=== PATIENT | male | born 1965 | race Caucasian/White ===

== ENCOUNTER 2021-08-25 15:37 | Emergency (ER) | payer OTHER ==
[2021-08-25 17:30] LABS: BASOPHIL 0.8 % (0-2); EOSINOPHIL 2.5 % (0-5); HCT 50.6 % (42.0-52.0); HGB 17.6 g/dl (13.2-18.0); LYMPHOCYTE 31.5 % (15-48); MCH 33.5 pg (25.0-31.0); MCHC 34.8 g/dL (32.0-36.0); MCV 96.2 fL (78.0-100.0); MONOCYTE 8.4 % (0-12); MPV 9.9 fL (6.0-9.5); NEUTROPHIL 56.4 % (41-80); NRBC 0; PLT 230 K/uL (150-400); RBC 5.26 M/uL (4.70-6.00); RDW 11.6 % (11.5-14.0); WBC 8.5 K/uL (4.0-10.5)
[2021-08-25 17:40] LABS: INR 1.07 (0.9-1.2); PROTHROMBIN TIME 13.3 SECONDS (11.8-13.4); PTT 34.1 SECONDS (24.4-34.7)
[2021-08-25 18:11] LABS: BILIRUBIN - TOTAL 0.3 mg/dL (0.2-1.0); BUN/CREAT RATIO (CALC) 13.2 RATIO; CREATININE 0.76 mg/dL (0.67-1.17); GLOBULIN (CALCULATION) 3.6 g/dL; POTASSIUM 4.3 mmol/L (3.5-5.1); TOTAL PROTEIN 7.6 g/dL (6.4-8.2)
== END 2021-08-25 23:00 | disposition home or self-care (01) ==
LOC: FER 15:37
PROVIDERS: Emergency Medicine
DX: M79.604 Pain in right leg (principal); I10 Essential (primary) hypertension; Z79.899 Other long term (current) drug therapy
CPT/HCPCS: 36415; 72131; 75635; 80053; 82550; 84484; 85025; 85610; 85730; 93005; J1644; J7030; Q9967